=== PATIENT | female | born 1960 | race Caucasian/White ===

== ENCOUNTER 2016-05-12 12:34 | Emergency (ER) | payer OTHER ==
[~2016-05-12] VITALS: Ht 165.1 cm; Wt 73.1 kg
[~2016-05-12 12:34] MED LIST: MTR600X PO; OXYC5TAB PO
[2016-05-12 12:38] VITALS: TEMP 36.9; Ht 165.1 cm; Wt 73.1 kg
--- NOTE | 2016-05-12 13:18 | EMERGENCY ROOM VISIT NOTE ---
History Report prepared by Jailynibmarilyn: Gregoria Gillespie Under the Supervision of: Dr. Tal Hector D.O. First contact with patient: 13:12 Chief Complaint: CHEST PAIN Stated Complaint: L SIDE CHEST PAIN, SUBSIDED Nursing Triage Summary: reports while sitting at computer about 30 min ago developed severe midsternal cp denies radiation or sob , denies casas, or [place] , pain in chest has since subsided History of Present Illness The patient is a 56 year old female who presents to the Emergency Room with complaints of left-sided chest pain. The patient was at work when she noticed an acute onset of left-sided chest pain. She describes it as sharp. She states the pain lasted approximately 20 minutes. She denies having any chest pain nausea or vomiting. The pain was not exertional in nature. There was nothing that made it worse and nothing made it better. She states the pain went away on its own. The patient denies that the pain was radiating to her back or neck. She has not had similar symptoms in the past. She presented to the emergency department with her significant other. She states the pain at this time has completely resolved. The patient did not seek medical treatment prior to coming to the emergency apartment. She states the pain was moderate to severe when it was at its peak. The patient does not have any classic cardiac risk factors of hypertension diabetes or elevated cholesterol but she does have a family history of early coronary artery disease. Review of Systems See HPI for pertinent positives & negatives. A total of 10 systems reviewed and were otherwise negative. Past Medical & Surgical Medical Problems: (1) Menorrhagia Surgical Problems: (1) H/O lumpectomy (2) S/P ARLENE (total abdominal hysterectomy) Social History Smoking Status: Never Smoker Smokeless Tobacco Use: No Alcohol Use: occasionally Drug Use: none Marital Status: Housing Status: lives with family Occupation Status: unemployed Current/Historical Medications Scheduled Magnesium Oxide (Mg Supplement (Magnesium), 500 MG PO DAILY Allergies Coded Allergies: No Known Allergies (Unverified , 05/12/16) Physical Exam Vital Signs Date Time Temp Pulse Resp B/P Pulse Ox O2 Delivery O2 Flow Rate FiO2 05/12/16 15:21 67 18 128/84 98 Room Air 05/12/16 14:04 60 14 142/86 100 Room Air 05/12/16 13:50 99 Room Air 05/12/16 13:50 99 Room Air 1/16/17 12:51 65 05/12/16 12:38 36.9 61 18 168/95 100 Room Air Physical Exam GENERAL: Patient is awake, alert, in no acute distress, patient is resting comfortably and showing no signs of anxiety EYES: The conjunctivae are clear. The pupils are round and reactive. EARS, NOSE, MOUTH AND THROAT: The nose is without any evidence of any deformity. Mucous membranes are moist tongue is midline NECK: The neck is nontender and supple. RESPIRATORY: Normal respiratory effort is noted there is no evidence of wheezing rhonchi or rales CARDIOVASCULAR: Regular rate and rhythm noted there no murmurs rubs or gallops normal S1 normal S2 GASTROINTESTINAL: The abdomen is soft. Bowel sounds are present in all quadrants. Abdomen is nontender MUSCULOSKELETAL/EXTREMITIES: There is no evidence of gross deformity full range of motion is noted in the hips and shoulders SKIN: There is no obvious evidence of any rash. There are no petechiae, pallor or cyanosis noted. No calf tenderness was noted. NEUROLOGIC: Patient is awake alert and oriented x3. Medical Decision & Procedures ER Provider Diagnostic Interpretation: This X-Ray was reviewed and interpreted by myself and the radiologist. CHEST ONE VIEW PORTABLE IMPRESSION: No acute cardiopulmonary findings. Electronically signed by: Segundo Gonzales M.D. 05/12/2016 2:02 PM Laboratory Results 05/12/16 13:47 Red Blood Count 4.80, Mean Corpuscular Volume 90.4, Mean Corpuscular Hemoglobin 31.3, Mean Corpuscular Hemoglobin Concent 34.6, Mean Platelet Volume 10.7, Neutrophils (%) (Auto) 67.9, Lymphocytes (%) (Auto) 25.3, Monocytes (%) (Auto) 5.5, Eosinophils (%) (Auto) 0.7, Basophils (%) (Auto) 0.4, Neutrophils # (Auto) 3.74, Lymphocytes # (Auto) 1.39, Monocytes # (Auto) 0.30, Eosinophils # (Auto) 0.04, Basophils # (Auto) 0.02 05/12/16 13:47 Test 05/12/16 13:47 White Blood Count 5.50 K/uL (4.8-10.8) Red Blood Count 4.80 M/uL (4.2-5.4) Hemoglobin 15.0 g/dL (12.0-16.0) Hematocrit 43.4 % (37-47) Mean Corpuscular Volume 90.4 fL (80-100) Mean Corpuscular Hemoglobin 31.3 pg (25-34) Mean Corpuscular Hemoglobin Concent 34.6 g/dl (32-36) Platelet Count 237 K/uL (130-400) Mean Platelet Volume 10.7 fL (7.4-10.4) Neutrophils (%) (Auto) 67.9 % Lymphocytes (%) (Auto) 25.3 % Monocytes (%) (Auto) 5.5 % Eosinophils (%) (Auto) 0.7 % Basophils (%) (Auto) 0.4 % Neutrophils # (Auto) 3.74 K/uL (1.4-6.5) Lymphocytes # (Auto) 1.39 K/uL (1.2-3.4) Monocytes # (Auto) 0.30 K/uL (0.11-0.59) Eosinophils # (Auto) 0.04 K/uL (0-0.5) Basophils # (Auto) 0.02 K/uL (0-0.2) RDW Standard Deviation 42.8 fL (36.4-46.3) RDW Coefficient of Variation 13.0 % (11.5-14.5) Immature Granulocyte % (Auto) 0.2 % Immature Granulocyte # (Auto) 0.01 K/uL (0.00-0.02) Prothrombin Time 10.4 SECONDS (9.0-12.0) Prothromb Time International Ratio 1.0 (0.9-1.1) Activated Partial Thromboplast Time 31.5 SECONDS (21.0-31.0) Partial Thromboplastin Ratio 1.2 Anion Gap 12.0 mmol/L (3-11) Est Creatinine Clear Calc Drug Dose 85.0 ml/min Estimated GFR () 105.0 Estimated GFR (Non- 90.6 BUN/Creatinine Ratio 19.3 (10-20) Calcium Level 9.4 mg/dl (8.5-10.1) Total Bilirubin 0.6 mg/dl (0.2-1) Direct Bilirubin 0.1 mg/dl (0-0.2) Aspartate Amino Transf (AST/SGOT) 19 U/L (15-37) Alanine Aminotransferase (ALT/SGPT) 26 U/L (12-78) Alkaline Phosphatase 109 U/L (45-117) Total Creatine Kinase 132 U/L (26-192) Creatine Kinase MB 1.9 ng/ml (0.5-3.6) Creatine Kinase MB Ratio 1.4 (0-3.0) Troponin I 0.023 ng/ml (0-0.045) Total Protein 7.3 gm/dl (6.4-8.2) Albumin 4.3 gm/dl (3.4-5.0) Lipase 101 U/L (73-393) Laboratory results per my review. ECG Indication: chest pain Rate (beats per minute): 56 Rhythm: sinus bradycardia Findings: no acute ischemic change, no ectopy Comparison ECG Date: no prior available ED Course 1245: The patient was evaluated in room A3. A complete history and physical examination were performed. 1519: I reevaluated the patient. She is feeling much better. I discussed her results and discharge instructions and she verbalized complete understanding and agreement. Medical Decision Prior records/ancillary studies reviewed. Triage Nursing notes reviewed. The patient's history was concerning for chest pain. Differential diagnosis: Etiologies such as cardiac ischemia, aortic dissection, pulmonary embolism, pneumonia, pneumothorax, musculoskeletal, infections, pericarditis, myocarditis , esophageal rupture, gastrointestinal, as well as others were entertained. The patient is a 56-year-old female who presented to the emergency department for an evaluation of chest pain. The patient describes chest pain which was not exertional. It was not associated with other symptoms. The pain resolved prior to arrival. The patient does have risk factors of early coronary artery disease in her family history. I discussed the patient's laboratory and radiographic studies with her. I also discussed the limitations of the emergency department workup for chest pain with her. I offered to have her evaluated by the hospitalist for possible inpatient management but I also told her that it may be acceptable given her workup at this time to follow-up with her primary care physician for a stress test as an outpatient. The patient discussed this with her significant other and chose to follow-up with her primary care physician first. She was instructed to rest and avoid any strenuous activity. She was encouraged to call her primary care physician as soon as possible to discuss the possibility that she may require further studies such as a stress test. She was also encouraged to return the emergency Department immediately if symptoms change worsen or the need arises. Otherwise she was encouraged to follow-up with her doctor also to have her blood pressure blood sugar and cholesterol checked. Impression Primary Impression: Left sided chest pain Scribe Attestation The scribe's documentation has been prepared under my direction and personally reviewed by me in its entirety. I confirm that the note above accurately reflects all work, treatment, procedures, and medical decision making performed by me. Departure Information Dispostion Home / Self-Care Referrals Monae Holliday M.D. (PCP) Patient Instructions ED Chest Pain Atypical Unkn Cause, [facility] Additional Instructions Call our primary care physician to schedule a follow up appointment. Rest and avoid any strenuous activity. Return to the ED if symptoms return. Discuss scheduling a stress test to further evaluate your discomfort.
[2016-05-12] MEDS ORDERED: MAGN500C PO (13:35)
[2016-05-12 13:50] VITALS: O2SAT 99
--- NOTE | 2016-05-12 14:03 | DIAGNOSTIC IMAGING REPORT ---
CHEST ONE VIEW PORTABLE CLINICAL HISTORY: Left-sided chest pain. COMPARISON STUDY: No previous studies for comparison. FINDINGS: Lung volumes are normal. No pneumothorax or pleural effusion is present. Pulmonary vascularity is normal. Cardiac size is normal. Mediastinal contours are normal. IMPRESSION: No acute cardiopulmonary findings. Electronically signed by: Segundo Gonzales M.D. 05/12/2016 2:02 PM Dictated Date/Time: 05/12/2016 2:01 PM
[2016-05-12 14:13] LABS: BASO % 0.4 %; BASO ABS # 0.02 K/uL (0-0.2); COMPLETE YES; EOS % 0.7 %; HEMATOCRIT 43.4 % (37-47); IG% 0.2 %; LYMPH % 25.3 %; LYMPH ABS # 1.39 K/uL (1.2-3.4); MEAN CELL VOLUME 90.4 fL (80-100); MEAN CORPUSCULAR HEMOGLOBIN 31.3 pg (25-34); MEAN CORPUSCULAR HGB CONC 34.6 g/dl (32-36); MEAN PLATELET VOLUME 10.7 fL (7.4-10.4); MONO % 5.5 %; NEUT % 67.9 %; PLATELET COUNT 237 K/uL (130-400)
[2016-05-12 14:22] LABS: PARTIAL THROMBOPLASTIN RATIO 1.2; PROTHROMBIN TIME (PATIENT) 10.4 SECONDS (9.0-12.0)
[2016-05-12 14:32] LABS: BUN/CREATININE RATIO 19.3 (10-20); CALCIUM 9.4 mg/dl (8.5-10.1); CREATININE 0.74 mg/dl (0.60-1.20)
[2016-05-12 14:38] LABS: CKMB/CK RATIO 1.4 (0-3.0)
[2016-05-12 15:21] VITALS: BP 128/84; PULSE 67; O2SAT 98
== END 2016-05-12 15:37 | disposition home or self-care (01) ==
LOC: C.EDB 12:34 → C.EDA 15:37
DX: R07.89 Other chest pain (principal); Z82.49 Family history of ischemic heart disease and other diseases of the circulatory system